=== PATIENT | male | born 1955 | race Caucasian/White ===

== ENCOUNTER → 2018-04-20 | Day surgery (SDC) | payer OTHER ==
[2018-04-19 14:40] LABS: BASOPHILS % 0.4 % (0.0-1.0); EOSINOPHILS # (AUTO) 0.2 (0.0-0.4); EOSINOPHILS % 3.3 % (0.0-6.0); HEMATOCRIT 42.9 % (38.2-49.6); HEMOGLOBIN 14.5 g/dL (14.0-18.0); LYMPHOCYTES # (AUTO) 2.1 (1.0-3.2); LYMPHOCYTES % 46.8 % (18.0-39.1); MEAN CORPUSCULAR HGB CONC 33.8 g/dL (31-35); MEAN CORPUSCULAR VOLUME 91.9 fL (81-99); MONOCYTES # (AUTO) 0.4 (0.2-0.8); MONOCYTES % 7.9 % (4.4-11.3); NEUTROPHILS # (AUTO) 1.9 (2.1-6.9); NEUTROPHILS % 41.4 % (38.7-80.0); PLATELET COUNT 174 x10e3/uL (140-360); RED BLOOD COUNT 4.67 x10e6/uL (4.3-5.7); RED CELL DISTRIBUTION WIDTH 13.2 % (11.7-14.4)
[2018-04-19 14:49] LABS: INR 0.98; PROTHROMBIN TIME 12.2 seconds (11.9-14.5)
[2018-04-19 14:57] LABS: ALBUMIN 4.2 g/dL (3.5-5.0); ALBUMIN/GLOBULIN RATIO 1.3 (0.8-2.0); ANION GAP 14.3 mmol/L (8-16); CALCIUM 9.5 mg/dL (8.4-10.2); CREATININE, SERUM 1.5 mg/dL (0.72-1.25); POTASSIUM 4.3 mmol/L (3.5-5.1)
[2018-04-20] VITALS (13 sets, daily range): BP systolic 115–144; BP diastolic 68–93
[~2018-04-20] VITALS: Ht 188 cm; Wt 117.9 kg
[~2018-04-20] MED LIST: ASPIRIN81 MG; BACTRIM DS TAB1 EACH PO; CRESTOR10 MG; FENTANYL CITRATE/PF 100MCG/2 ML INJ ONE; HEPARIN SOD (PORCINE) 1000 UNIT/ML 30ML ONE; HEPARIN SOD/SOD CHLORIDE 2,000 ML ONE; IOPAMIDOL 370 MG/ML 200 ML INFUS..BTL INJ ONE; KOMBIGLYZE XR1 EAC2 PO; LIDOCAINE HCL 2% LOCAL 20 ML VIAL ONE; MIDAZOLAM HCL 2 MG/2 ML VIAL ONE; NITROGLYCERIN/D5W 200 MCG/ML 250 ML ONE; SODIUM CHLORIDE 0.9% 1000ML 1,000 ML ONE; Trulicity IJ; VERAPAMIL HCL 2.5 MG/ML 2 ML VIAL ONE; invokana PO
--- NOTE | 2018-04-20 19:10 | Operative Report ---
DATE OF PROCEDURE: April 20, 2018 INDICATIONS: Chest pain, positive stress test. PROCEDURE PERFORMED: 1. Coronary angiography. 2. Left heart catheterization. PROCEDURE NOTE: Informed consent was obtained after explaining all the risks, benefits and alternatives of the procedure to the patient and his family. Preoperative moderate sedation assessment was completed as per the records. The patient was deemed to be an appropriate candidate for moderate sedation. Patient presented to the cardiac catheterization laboratory in a fasting state. The right wrist was prepped and draped in a sterile fashion, and 1% lidocaine was used to infiltrate the right wrist. Over the right radial artery, a 6-Sinhala sheath was placed in the right radial artery using modified Seldinger technique. Coronary angiography was performed using a 5-Sinhala ____ preformed catheter to engage both the RCA and LCA as well as to perform the left heart catheterization. Multiple orthogonal views were obtained of each coronary artery. All catheters were removed over a guidewire. The access site was closed using a TR band. The case ended without any complications. Estimated blood loss 20 mL. FINDINGS: Left main coronary artery large caliber normal. LAD large vessel goes to the apex. One large diagonal branch, mild plaquing without obstructive coronary disease. Left circumflex is a small nondominant artery. RCA: A very large dominant RCA, very large RPL system and a medium-sized RPDA system. No significant coronary artery disease. COMPLICATIONS: None. SPECIMENS REMOVED: None. IMPLANTS: None. ESTIMATED BLOOD LOSS: 20 mL. RECOMMENDATIONS: 1. Usual post procedure care until TR band removal. 2. Continue optimal medical therapy and risk factor control. 3. Call the office for followup in 2 weeks post procedure. Job#: [id number]
== END | disposition home or self-care (01) ==
LOC: CATH LAB 09:53
PROVIDERS: ATTEND Internal Medicine
DX: I25.10 Atherosclerotic heart disease of native coronary artery without angina pectoris (principal); R94.39 Abnormal result of other cardiovascular function study; R94.31 Abnormal electrocardiogram [ECG] [EKG]; E78.00 Pure hypercholesterolemia, unspecified; E11.9 Type 2 diabetes mellitus without complications; Z01.812 Encounter for preprocedural laboratory examination; Z79.84 Long term (current) use of oral hypoglycemic drugs; Z79.82 Long term (current) use of aspirin; Z96.652 Presence of left artificial knee joint; Z87.891 Personal history of nicotine dependence; Z82.49 Family history of ischemic heart disease and other diseases of the circulatory system
CPT/HCPCS: 36415; 80053; 85025; 85610; 93458; J1644; J2001; J2250; J7030; Q9967